=== PATIENT | female | born 1985 | race Caucasian/White ===

== ENCOUNTER 2017-01-27 09:46 | Emergency (ER) | payer OTHER ==
[2017-01-27 10:30] VITALS: BP 128/75
[2017-01-27] MEDS ORDERED: DOXYcycline CAP(*) 100 MG PO ONE (10:45)
--- NOTE | 2017-01-27 10:55 | UC ---
Skin Complaint HPI - HPI Summary HPI Summary: PATIENT ARRIVES WITH CC OF TICK ON THE LEFT SIDE OF HER LEG UNDER THE BUTTOCKS. TICK IS STILL ATTACHED. PATIENT IS CONCERNED WITH LYME. SHE IS UNAWARE HOW LONG IT HAS BEEN THERE, BUT NOTES SHE WAS OUT IN THE [place] ON TUESDAY[place]TUESDAY. SHE FEELS PAIN LOCALLY AROUND THE TICK, BUT DENIES MYALGIAS, OSORIO, NEURO SYMPTOMS. SHE HAS HAD TICKS IN THE PAST, AND HAS BEEN ABLE TO REMOVE THEM. SHE DID NOT ATTEMPT TO REMOVE THIS TICK SINCE SHE IS UNSURE THE LENGTH OF TIME THE TICK HAS BEEN THERE. THERE IS A SMALL BRIGHT RED "RING" AROUND THE TICK AND LOCAL ERYTHEMA WITH SLIGHT WARMTH. DENIES DRAINAGE OR BLOOD. SHE HAS NEVER BEEN DIAGNOSED WITH LYME DISEASE. - History of Current Complaint Chief Complaint: UCSkin Time Seen by Provider: 01/27/17 10:24 Stated Complaint: TICK Hx Obtained From: Patient Hx Last Menstrual Period: 01/25/17 ?: No Onset/Duration: Sudden Onset Skin Exposure Onset/Duration: Days Ago Timing: Constant Onset Severity: Mild Current Severity: Mild Pain Intensity: 1 Pain Scale Used: 0-10 Numeric Location: Discrete - LEFT SIDE OF LEG UNDER LEFT BUTTOCKS Character: Redness, Raised, Painful Alleviating: Unknown Associated Signs & Symptoms: Positive: Negative, Rash - SMALL RED RING SURROUNDING TICK BITE - DOES NOT APPEAR TO BE ERYTHEMA MIGRANS RING Related History: Insect Bite/Sting - Allergy/Home Medications Allergies/Adverse Reactions: Allergies Allergy/AdvReac Type Severity Reaction Status Date / Time No Known Allergies Allergy Verified 01/27/17 10:25 Review of Systems Constitutional: Negative Skin: Other Eyes: Negative Respiratory: Negative Cardiovascular: Negative Neurovascular: Negative Musculoskeletal: Negative Neurological: Negative Psychological: Negative All Other Systems Reviewed And Are Negative: Yes PMH/Surg Hx/FS Hx/Imm Hx Previously Healthy: Yes - Surgical History Surgical History: Yes Surgery Procedure, Year, and Place: c section x 3, tubal - Family History Known Family History: Positive: Unknown - Social History Occupation: Employed Full-time Lives: With Family Alcohol Use: None Substance Use Type: None Smoking Status (MU): Heavy Every Day Tobacco Smoker Type: Cigarettes Amount Used/How Often: 1/2 pack daily Physical Exam Triage Information Reviewed: Yes Appearance: Well-Appearing, No Pain Distress, Well-Nourished Vital Signs: Initial Vital Signs Temp 98.6 F 01/27/17 10:26 Pulse 84 01/27/17 10:26 Resp 16 01/27/17 10:26 BP 128/75 01/27/17 10:26 Pulse Ox 100 01/27/17 10:26 Vital Signs Reviewed: Yes Eye Exam: Normal Eyes: Positive: Conjunctiva Clear, Conjunctiva Inflamed ENT: Positive: Pharynx normal Neck exam: Normal Neck: Positive: Supple, No Lymphadenopathy Respiratory Exam: Normal Respiratory: Positive: Chest non-tender, Lungs clear Neurological Exam: Normal Neurological: Positive: Alert Psychological Exam: Normal Psychological: Positive: Normal Response To Family Skin: Positive: Other - SEE TREATMENT Course/Dx - Course Course Of Treatment: SHE DOES NOT APPEAR TO HAVE THE CLASSIC EM RASH ASSOCIATED WITH LYME. SMALL DARKENED RING RING SURROUNDING TICK MEASURING LESS THAN .5CM DIAMATER WITH SURROUNDING ERYTHMA OF LESS THAN 1CM DIAMETER WITH SLIGHT WARMTH. TICK REMOVED USING SOAP AND WATER. PATIENT TOLERATED WELL. PATIENT EDUCATED AND GIVEN INFORMATION ON LYME DISEASE AND THE RATE OF TRANSMISSION. TICK MOST LIKELY ATTACHED FOR OVER 36 HOURS, SO WILL PROPHYLACTICALLY TREAT WITH DOXYCYCLINE 200MG IN OFFICE. PATIENT WILL FOLLOW UP WITH PCP OR RETURN IF ANY SYMPTOMS SUCH OSORIO, NEURO SYMPTOMS OR MYALGIAS DEVELOP. PATIENT AGREES TO THIS PLAN AND IS OK FOR DISCHARGE. - Differential Diagnoses - Skin Complaint Differential Diagnoses: Tick Born Illness, Other - LYME, RASH - Diagnoses Provider Diagnoses: TICK BITE Discharge - Discharge Plan Condition: Stable Disposition: HOME Patient Education Materials: Lyme Disease (ED), Tick Bite (ED) Referrals: BOBBI Xiong [Primary Care Provider] - Additional Instructions: IF YOU DEVELOP HEADACHES, BODY ACHES, OR OTHER CONCERNING SYMPTOMS, PLEASE COME BACK TO OR FOLLOW UP WITH YOUR PCP FOR FURTHER EVALUATION. YOU HAVE BEEN TREATED WITH 200MG DOXYCYCLINE SINCE YOU HAVE MET THE CRITERIA FOR LYME PROPHYLAXIS. Attached tick identified as an adult or nymphal I. scapularis tick (deer tick). Tick is estimated to have been attached for 36 hours (by degree of engorgement or time of exposure). Prophylaxis is begun within 72 hours of tick removal. Local rate of infection of ticks with B. burgdorferi is 20 percent Tick removal Using proper technique for tick removal is important. Several methods of tick removal have been advocated. A study that evaluated the use of forceps or protected fingers, or the application of petroleum jelly, fingernail telugu, isopropyl alcohol, or a hot match, found that only the use of forceps or protected fingers resulted in the satisfactory removal of 29 adult [place] dog ticks without leaving the mouthparts in the host skin The proper technique for removal of the attached tick includes the following steps: ?If available, use tweezers or small forceps to grasp the tick as close to the skin surface as possible. In the absence of tweezers, use paper or cloth to protect the fingers during tick extraction. ?Pull straight up gently but firmly, using steady pressure. Do not jerk or twist. ?Do not squeeze, crush, or puncture the body of the tick, since its fluids may contain infectious agents. ?Disinfect the skin thoroughly after removing the tick and wash hands with soap and water. ?If sections of the mouthparts of the tick remain in the skin, they should be left alone as they will normally be expelled spontaneously. ?After the tick removal and the skin cleansing, the person bitten (or the parents) should observe the area for the development of EM for up to 30 days following exposure. Components of tick saliva can cause transient erythema that should not be confused with EM. Since the tick usually needs to be attached for two to three days before transmission of the Lyme disease agent occurs, removal of the tick within this time frame often prevents the infection
== END 2017-01-27 11:02 | disposition home or self-care (01) ==
LOC: UCCORT 09:46
DX: S70.362A Insect bite (nonvenomous), left thigh, initial encounter (principal); W57.XXXA Bitten or stung by nonvenomous insect and other nonvenomous arthropods, initial encounter; Y93.9 Activity, unspecified; Y92.9 Unspecified place or not applicable; F17.210 Nicotine dependence, cigarettes, uncomplicated
CPT/HCPCS: 99212; A9270-GY; G0463

== ENCOUNTER 2018-06-01 07:58 | Emergency (ER) | payer OTHER ==
[2018-06-01 08:10] VITALS: BP 144/82
--- NOTE | 2018-06-01 08:10 | UC ---
Upper Extremity HPI - HPI Summary HPI Summary: Patient presents for evaluation of a wound on her left index finger. Patient states approximately 7 days ago she had been cleaning her house vigorously with bleach. Patient states she developed a small pustules at her cuticle on her left index finger. Patient states she popped them in the skin dried up and peel. Patient she peeled off the skin - approx a dime size area of the lateral aspect of the distal phalanx. Patient states she was concerned it was a yeast infection so put fungal cream on it. Patient states she then put hydrocortisone. Patient states it has not gotten worse but has not gotten better. No pain. No swelling. No erythema. No fevers or chills. No difficulty with movement. Patient with a history of anxiety and concerned there was something "wrong." Patient is not immunocompromised. Pt with h/o herpes / oral lesions Pt's medications reviewed this visit - History of Current Complaint Stated Complaint: LT HAND/INDEX FINGER CONCERN Hx Obtained From: Patient Hx Last Menstrual Period: 05/24/18 ?: No Pain Intensity: 0 - Allergies/Home Medications Allergies/Adverse Reactions: Allergies Allergy/AdvReac Type Severity Reaction Status Date / Time No Known Allergies Allergy Verified 06/01/18 08:10 PMH/Surg Hx/FS Hx/Imm Hx Previously Healthy: Yes - Surgical History Surgical History: Yes Surgery Procedure, Year, and Place: c section x 3, tubal - Family History Known Family History: Positive: Other - mom with aneuyrsm - Social History Occupation: Employed Full-time Lives: With Family Alcohol Use: None Substance Use Type: None Smoking Status (MU): Heavy Every Day Tobacco Smoker Type: Cigarettes Amount Used/How Often: 1/2 pack daily Review of Systems Constitutional: Negative Skin: Other All Other Systems Reviewed And Are Negative: Yes Physical Exam - Summary Physical Exam Summary: Vital Signs Reviewed: Yes A+Ox3, no distress Eyes: Conjunctiva Clear ENT: Hearing grossly normal neck: supple Respiratory: Positive: No respiratory distress, No accessory muscle use CTA throughout no w/r Cardiovascular: skin color reflect adequate perfusion RRR nl s1, s2 2+ radial, 2 + ulnar CBT < 2 sec Musculoskeletal Exam: PEARSON x 4 without difficulty + flex/ext index mcp, PIP, DIP without difficulty, pain or limitation Neurological: Positive: Alert, ambulatory without difficulty + gross sensation throughout Psychological: Positive: Normal Response To Family Skin: Positive: no rash, no ecchymosis Pt with dime size skin patch missing lateral aspect of left index, dry scaling skin - non tender. No erythema, warmth , drainage. No vesicles non tender no edema Triage Information Reviewed: Yes Vital Signs: Initial Vital Signs Temp 98.4 F 06/01/18 08:04 Pulse 91 06/01/18 08:04 Resp 18 06/01/18 08:04 BP 144/82 06/01/18 08:04 Pulse Ox 100 06/01/18 08:04 Upper Extremity Course/Dx - Course Course Of Treatment: Pt with skin avulsion / dry skin left index finger. No concern for infection. considered diagnosis of herpetic ben as pt states started with small vesicle. no tender. no drainage. recommend cover with abx ointment bandage. reviewed s/s infection. return precautions. pt comfortable and in agreement with plan. pt's blood pressure mildly elevated - recommend pcp f/u - Differential Dx/Diagnosis Provider Diagnoses: skin avulsion Discharge - Sign-Out/Discharge Documenting (check all that apply): Patient Departure - Discharge Plan Condition: Stable Disposition: HOME Patient Education Materials: Skin Avulsion (ED) Referrals: Michael PURVIS,Michael Gonzalez [Primary Care Provider] - Additional Instructions: - Keep wound covers with antibiotic ointment (polysporin, neosporin) and bandage - elevate your hand to help with swelling and pain - okay to alternate (ibuprofen, advil) and tylenol every 3 hours for pain. Take with food - monitor your wound for increased signs of infection - reddness, red streaking , pain, fever, swelling - you should be re-evaluated - contact your doctor or return with questions or concerns - Billing Disposition and Condition Condition: STABLE Disposition: Home
== END 2018-06-01 08:30 | disposition home or self-care (01) ==
LOC: UCCORT 07:58
DX: S61.201A Unspecified open wound of left index finger without damage to nail, initial encounter (principal); Y93.E9 Activity, other interior property and clothing maintenance; Y92.009 Unspecified place in unspecified non-institutional (private) residence as the place of occurrence of the external cause; F17.210 Nicotine dependence, cigarettes, uncomplicated
CPT/HCPCS: 99212; G0463

== ENCOUNTER 2018-12-07 12:44 | Emergency (ER) | payer SELFPAY ==
--- NOTE | 2018-12-07 13:59 | UC ---
Throat Pain/Nasal Bernardo HPI - HPI Summary HPI Summary: 33 yo female presents with 2 days of low grade fever of around 100F that resolves with tylenol, fatigue, and body aches. She is concerned she has the flu. Did not get the flu shot this year. Has a slight dry cough. Is still smoking daily. Denies sinus symptoms, sore throat, SOB, rash, n/v - History of Current Complaint Stated Complaint: FEVER,HEADACHE Time Seen by Provider: 12/07/18 13:58 Hx Obtained From: Patient Hx Last Menstrual Period: 05/24/18 Onset/Duration: Sudden Onset Severity: Mild Pain Intensity: 3 Pain Scale Used: 0-10 Numeric - Allergies/Home Medications Allergies/Adverse Reactions: Allergies Allergy/AdvReac Type Severity Reaction Status Date / Time No Known Allergies Allergy Verified 12/07/18 14:10 Home Medications: Home Medications Ibuprofen TAB* [Motrin TAB* 400 MG] 400 mg PO Q6H PRN 12/07/18 [History Confirmed 12/07/18] PMH/Surg Hx/FS Hx/Imm Hx - Additional Past Medical History Additional PMH: None - Surgical History Surgical History: Yes Surgery Procedure, Year, and Place: c section x 3, tubal - Family History Known Family History: Positive: Unknown, Other - mom with aneuyrsm - Social History Occupation: Employed Full-time Lives: With Family Alcohol Use: None Substance Use Type: None Smoking Status (MU): Heavy Every Day Tobacco Smoker Type: Cigarettes Amount Used/How Often: 1/2 pack daily Review of Systems All Other Systems Reviewed And Are Negative: Yes Constitutional: Positive: Fever, Fatigue, Other - Body aches Skin: Positive: Negative Eyes: Positive: Negative ENT: Positive: Negative Respiratory: Positive: Cough Cardiovascular: Positive: Negative Gastrointestinal: Positive: Negative Neurovascular: Positive: Negative Neurological: Positive: Negative Psychological: Positive: Negative Physical Exam - Summary Physical Exam Summary: GENERAL: NAD. WDWN. No pain distress. SKIN: No rashes, sores, lesions, or open wounds. HEENT: Head: AT/NC Eyes: EOM intact. Conjunctiva clear without inflammation or discharge. Ears: Hearing grossly normal. TMs intact, no bulging, erythema, or edema. Nose: Nasal mucosa pink and moist. NTTP maxillary and frontal sinus. Throat: Posterior oropharynx without exudates, erythema, or tonsillar enlargement. Uvula midline. NECK: Supple. Nontender. No lymphadenopathy. CHEST: CTAB. No r/r/w. No accessory muscle use. Breathing comfortably and in no distress. CV: RRR. Without m/r/g. Pulses intact. Cap refill <2seconds NEURO: Alert. PSYCH: Age appropriate behavior. Triage Information Reviewed: Yes Vital Signs: Vital Signs: Temp Pulse Resp BP Pulse Ox 100.2 F 87 16 127/64 100 12/07/18 14:10 12/07/18 14:10 12/07/18 14:10 12/07/18 14:10 12/07/18 14:10 Laboratory Tests 12/07/18 14:20 Influenza A (Rapid) Positive A Vital Signs Reviewed: Yes Throat Pain/Nasal Course/Dx - Course Course Of Treatment: POC flu positive. Rx for tamiflu - Differential Dx/Diagnosis Provider Diagnosis: Influenza Discharge - Sign-Out/Discharge Documenting (check all that apply): Patient Departure All imaging exams completed and their final reports reviewed: No Studies - Discharge Plan Condition: Stable Disposition: HOME Prescriptions: Oseltamivir CAP* [Tamiflu CAP*] 75 mg PO BID #10 cap Patient Education Materials: Influenza (DC) Forms: *Work Release Referrals: Michael PURVIS,Michael Gonzalez [Primary Care Provider] - Additional Instructions: If you develop a fever, shortness of breath, chest pain, new or worsening symptoms - please call your PCP or go to the ED. - Billing Disposition and Condition Condition: STABLE Disposition: Home
[2018-12-07 14:12] VITALS: BP 127/64
[2018-12-07 14:24] LABS: Influenza A Molecular POSITIVE (Negative)
== END 2018-12-07 14:44 | disposition home or self-care (01) ==
LOC: UCCORT 12:44
DX: J11.1 Influenza due to unidentified influenza virus with other respiratory manifestations (principal); F17.210 Nicotine dependence, cigarettes, uncomplicated
CPT/HCPCS: 99212; G0463